=== PATIENT | male | born 1945 | race Caucasian/White ===

== ENCOUNTER 2021-02-17 01:02 | Inpatient (IN) | payer MEDICARE, BC ==
[~2021-02-17] VITALS: Ht 177.8 cm; Wt 90.7 kg
--- NOTE | 2021-02-17 01:15 | NUR ---
Pt transported bib private ambulance from [facility]. Here for medical clearance for admission to [facility]. Patient is on 5150 hold for attempting suicide, he has a laceration on left wrist that required 3 stitches, treated at [facility]. Safety precautions in place. Belongings removed from pts. posession. Pt. is being monitored 1:1. Pt. is cooperative.
[2021-02-17] MEDS ORDERED: SUVO20TA PO (01:37)
[2021-02-17] MEDS ORDERED: METO25TA6 PO (01:37)
[2021-02-17] MEDS ORDERED: ROSU20TA2 PO (01:37)
[2021-02-17] MEDS ORDERED: PYRI50CA PO (01:37)
[2021-02-17] MEDS ORDERED: AMIO200T5 PO (01:37)
[2021-02-17] MEDS ORDERED: HYDR25TA4 PO (01:37)
[2021-02-17] MEDS ORDERED: TEST5GEL2 TP (01:37)
[2021-02-17] MEDS ORDERED: ASPI81TA31 PO (01:37)
[2021-02-17] MEDS ORDERED: PREG150C PO (01:37)
[2021-02-17] MEDS ORDERED: LACT10SO3 PO (01:37)
[2021-02-17] MEDS ORDERED: INUL2TAB5 PO (01:37)
[2021-02-17] MEDS ORDERED: ERGO500040 PO (01:37)
[2021-02-17] MEDS ORDERED: METH5TAB2 PO (01:37)
[2021-02-17] MEDS ORDERED: DOCU100C36 PO (01:37)
[2021-02-17] MEDS ORDERED: SENN-291 PO (01:37)
[2021-02-17] MEDS ORDERED: THIO300C PO (01:37)
[2021-02-17] MEDS ORDERED: POTA10CA43 PO (01:37)
[2021-02-17] MEDS ORDERED: PANT40TA49 PO (01:37)
[2021-02-17] MEDS ORDERED: ZALE10CA PO (01:37)
[2021-02-17] MEDS ORDERED: ASCO-375 PO (01:37)
[2021-02-17] MEDS ORDERED: RIVA20TA PO (01:37)
[2021-02-17] MEDS ORDERED: SELE200T26 PO (01:37)
[2021-02-17] MEDS ORDERED: FLUT16SP16 NS (01:37)
[2021-02-17] MEDS ORDERED: BLOOD SUGAR DIAGNOSTIC 1 EACH STRIP VI ONE (02:15)
[2021-02-17] MEDS ORDERED: LORAZEPAM 0.5 MG TABLET PO PRN (02:15)
[2021-02-17] MEDS ORDERED: ACETAMINOPHEN 325 MG TABLET PO PRN (02:15)
[2021-02-17] MEDS ORDERED: MAG HYDROX/AL HYDROX/SIMETH 30 ML LIQUID UDC PO PRN (02:15)
[2021-02-17] MEDS ORDERED: ZOLPIDEM 5 MG TABLET PO PRN (02:15)
--- NOTE | 2021-02-17 02:30 | NUR ---
GPS ADMISSION : Patient is a 75 year old male brought into [facility] from [facility] ,on a 5150 for DTS. Per the hold, the police were called to the home because this patient tried to kill himself by cutting his wrist. The laceration is to the left wrist only but the cut was down to the tendon. This was cleaned and sutured prior to his arrival to the unit. Upon face to face evaluation, the patient appears to have complaints of multiple medical issues. The patient verbalized a long list of medical problems that have been getting "Worse over time ." Patient stated that " I have not been able to walk well and keep falling down. I stopped driving last August, and I feel like the best thing for me is to end it". This patient denied having suicide attempts in the past and has not been taking any medications for depression. The patient admitted to drinking everyday and minimized this as a problem. Pier Hand Helper noted the patient to be weak and unable to ambulate without assistance. A physical therapy evaluation was ordered. V.S. are stable. The patient was provided a Patient rights handbook along with the Advisement. Pier Hand Helper will continue to monitor the patient closely for falls, Safety Stratiges are in place and frequent rounding done. The patients laceration was photographed and the dressing was changed. No acute distress or issues at this time.
[2021-02-17 02:40] VITALS: BP 114/86
[2021-02-17 07:30] VITALS: BP 133/91
--- NOTE | 2021-02-17 11:09 | NUR ---
PT STATES HE WANTS A DNR TO BE PLACED IN HIS CHART. JONI COMPLETED AND EVALUATED BY DR. LIGHT. Addendum: 02/17/21 at 1118 by GIGI JARRETT RN PT STATED HE DID NOT "FEEL" LIKE SIGNING POLST AT THIS TIME BUT WANTS TO BE A DNR.
--- NOTE | 2021-02-17 14:01 | NUR ---
patient is alert and oriented x4 ambulating with FWW , left wrist wound care done . patient feels hopeless and helpless but denies any suicidal ideation, he said i got a lot medical problem that why i di that to my wrist.denies any pain or discomfort.encourage to verbalize feeling and attendance group activity, will continue close monitoring.
[2021-02-17 15:24] VITALS: BP 143/70
[2021-02-17] MEDS: DOCUSATE SODIUM 100 MG CAPSULE PO SCH (16:34)
[2021-02-17] MEDS: PANTOPRAZOLE SODIUM 40 MG TABLET.DR PO SCH (16:34)
[2021-02-17] MEDS: GABAPENTIN 100 MG CAPSULE PO SCH (16:34)
[2021-02-17] MEDS ORDERED: FLUTICASONE PROP NASAL SPRAY 16 GM BOTTLE NS PRN (17:00)
[2021-02-17 20:01] VITALS: BP 154/83
[2021-02-17] MEDS: ATORVASTATIN 40 MG TABLET PO SCH (20:31)
[2021-02-17] MEDS: METOPROLOL TARTRATE 25 MG TABLET PO SCH (20:32)
[2021-02-17] MEDS: SENNOSIDES/DOCUSATE SODIUM TABLET PO SCH (20:37)
[2021-02-17] MEDS: METHADONE HCL 10 MG TABLET PO SCH (22:20)
[2021-02-17] MEDS: ZOLPIDEM 5 MG TABLET PO PRN (22:27)
[2021-02-18] MEDS: LORAZEPAM 1 MG TABLET PO PRN (06:13)
[2021-02-18] MEDS: METHADONE HCL 10 MG TABLET PO SCH ×3 (06:13→21:06)
[2021-02-18 07:30] VITALS: BP 128/71
[2021-02-18] MEDS: GABAPENTIN 100 MG CAPSULE PO SCH ×3 (08:14→16:30)
[2021-02-18] MEDS: ASPIRIN 81 MG TAB.CHEW PO SCH (08:14)
[2021-02-18] MEDS: DOCUSATE SODIUM 100 MG CAPSULE PO SCH ×2 (08:14→16:30)
[2021-02-18] MEDS: DULOXETINE 30 MG CAPSULE.DR PO SCH (08:14)
[2021-02-18] MEDS: PANTOPRAZOLE SODIUM 40 MG TABLET.DR PO SCH ×2 (08:14→16:30)
[2021-02-18] MEDS: METOPROLOL TARTRATE 25 MG TABLET PO SCH ×2 (08:14→20:16)
[2021-02-18] MEDS: LACTULOSE 20 G/30 ML LIQUID UDC PO SCH (08:14)
[2021-02-18] MEDS ORDERED: AMIODARONE HCL 200 MG TABLET PO SCH (09:00)
[2021-02-18] MEDS ORDERED: SELENOMETHIONINE 200 MCG PO SCH (09:00)
[2021-02-18] MEDS ORDERED: Medication Not On Formulary EA (Rosuvastatin Calcium (Crestor) 1 TAB) PO SCH (09:00)
--- NOTE | 2021-02-18 10:40 | NUR ---
Firearms Report: Highballer completed and submitted a [employer] firearms report for 5150 danger to self certifications. A copy of report has been placed in patient chart.
--- NOTE | 2021-02-18 10:54 | NUR ---
GAGANDEEP Family Contact: SW spoke with patient's , Katie ([phone]) and discussed treatment and discharge plan.
--- NOTE | 2021-02-18 10:54 | NUR ---
GAGANDEEP Initial Discharge Plan: Pt resides at home [address] [place] [id number] live with , Katie ([phone]). Pt will return home upon discharge. AGGANDEEP will continue to work with patient, family, and MD to ensure a safe and proper discharge plan.
[2021-02-18 12:19] LABS: HEMATOCRIT 29.2 % (36.7-47.1); MEAN CORPUSCULAR HEMOGLOBIN 32.7 uug (23.8-33.4); MEAN CORPUSCULAR VOLUME 96.4 fL (73.0-96.2); PLATELET COUNT (AUTO) 212 K/uL (152-348)
[2021-02-18 12:27] LABS: ETHANOL < 3 MG/DL (0-0)
[2021-02-18 12:28] LABS: CARBON DIOXIDE 28 mmol/L (21-32); CHLORIDE 105 mmol/L (98-107); CREATININE 0.8 mg/dL (0.6-1.3); GLUCOSE 86 mg/dL (74-106); POTASSIUM 4.3 mmol/L (3.5-5.1); UREA NITROGEN, BLOOD 21 mg/dL (7-18)
[2021-02-18 12:41] LABS: ALANINE AMINOTRANSFERASE 35 U/L (16-63); ALKALINE PHOSPHATASE 57 U/L (50-136); ASPARTATE AMINOTRANSFERASE 19 U/L (15-37); BILIRUBIN,DIRECT 0.3 mg/dL (0.0-0.2); BILIRUBIN,TOTAL 1.7 mg/dL (0.2-1.0); TOTAL PROTEIN, SERUM 6.3 g/dL (6.4-8.2)
[2021-02-18 12:43] LABS: ACETAMINOPHEN < 2.0 ug/mL (10-30)
[2021-02-18 15:02] VITALS: BP 92/53
[2021-02-18 17:45] LABS: *BILIRUBIN,URIN NEGATIVE (NEGATIVE); *BLOOD, URINE NEGATIVE (NEGATIVE); *COLOR,URINE YELLOW (YELLOW); *KETONES,URINE TRACE (NEGATIVE); *UROBILINOGEN,URINE 0.2 E.U./dl (NORMAL); LEUKOCYTE ESTERASE ,URINE NEGATIVE (NEGATIVE); NITRITE, URINE NEGATIVE (NEGATIVE); PH,URINE 5.5 (5.0-8.0); UGLUCOSE NEGATIVE (NEGATIVE)
[2021-02-18 17:53] LABS: *CLARITY,URINE SLIGHTLY HAZY (CLEAR); BACTERIA,URINE FEW /HPF (NONE SEEN); CALCIUM OXALATE CRYSTALS,UR FEW /HPF (NONE SEEN); MUCUS,URINE FEW /LPF (0-FEW); RBC,URINE 0-3 /HPF (0-3); SQUAMOUS EPITHELIAL CELL,UR FEW /HPF (NONE SEEN)
[2021-02-18 17:57] LABS: *AMPHETAMINE, URINE NEGATIVE (NEGATIVE); *CANNABINOID, URINE NEGATIVE (NEGATIVE); *COCCAINE, URINE NEGATIVE (NEGATIVE); *OPIATE, URINE NEGATIVE (NEGATIVE); *PHENCYCLIDINE SCREEN,URINE NEGATIVE (NEGATIVE)
--- NOTE | 2021-02-18 18:00 | NUR ---
patient compliant with all medication,UA sent to Lab,will endorse to next shift on coming nurse to follow up for result.
[2021-02-18 20:00] VITALS: BP 135/58
[2021-02-18] MEDS: ATORVASTATIN 40 MG TABLET PO SCH (21:02)
[2021-02-18] MEDS: SENNOSIDES/DOCUSATE SODIUM TABLET PO SCH (21:03)
[2021-02-19] MEDS: LORAZEPAM 1 MG TABLET PO PRN (02:18)
[2021-02-19] MEDS: METHADONE HCL 10 MG TABLET PO SCH ×3 (06:08→21:23)
[2021-02-19] MEDS: PANTOPRAZOLE SODIUM 40 MG TABLET.DR PO SCH ×2 (06:24→16:21)
[2021-02-19 07:30] VITALS: BP 145/78
[2021-02-19] MEDS: DULOXETINE 30 MG CAPSULE.DR PO SCH (08:12)
[2021-02-19] MEDS: ASPIRIN 81 MG TAB.CHEW PO SCH (08:12)
[2021-02-19] MEDS: METOPROLOL TARTRATE 25 MG TABLET PO SCH ×2 (08:12→20:19)
[2021-02-19] MEDS: GABAPENTIN 100 MG CAPSULE PO SCH ×3 (08:12→16:21)
[2021-02-19] MEDS: DOCUSATE SODIUM 100 MG CAPSULE PO SCH ×2 (08:13→16:21)
[2021-02-19] MEDS: LACTULOSE 20 G/30 ML LIQUID UDC PO SCH (08:13)
--- NOTE | 2021-02-19 11:00 | NUR ---
GAGANDEEP Family Contact: SW spoke with patient's , Katie ([phone]) and discussed updated treatment and discharge plan.
--- NOTE | 2021-02-19 11:52 | NUR ---
WOUND CARE CONSULT: PT PRESENTS WITH LEFT WRIST SUTURED LACERATION AND RT ARM CLOSED, HEALING SKIN TEAR, PRESENT ON ADMISSION. RECOMMENDATIONS MADE FOR WOUND CARE AND SKIN PROTECTION. DISCUSSED WITH NURSING STAFF. MD IN AGREEMENT WITH PLAN OF CARE.
--- NOTE | 2021-02-19 12:07 | NUR ---
Patient seen and examined by wound nurse with order for left wrist with sutures and right arm skin tear. Cleanse the site with NS and covered with bordered gauze. no redness noted. will continue monitor
[2021-02-19 15:14] VITALS: BP 112/56
[2021-02-19] MEDS: MAGNESIUM HYDROXIDE 30 ML LIQUID UDC PO PRN (16:21)
[2021-02-19 20:05] VITALS: BP 117/66
[2021-02-19] MEDS: SENNOSIDES/DOCUSATE SODIUM TABLET PO SCH (20:18)
[2021-02-19] MEDS: TRAZODONE 50 MG TABLET PO SCH (20:19)
[2021-02-19] MEDS: ATORVASTATIN 40 MG TABLET PO SCH (20:19)
[2021-02-19] MEDS: ZOLPIDEM 5 MG TABLET PO PRN (21:55)
[2021-02-20] MEDS: PANTOPRAZOLE SODIUM 40 MG TABLET.DR PO SCH ×2 (06:18→16:47)
[2021-02-20] MEDS: METHADONE HCL 10 MG TABLET PO SCH ×3 (06:18→21:11)
[2021-02-20 07:30] VITALS: BP 133/58
[2021-02-20] MEDS: DOCUSATE SODIUM 100 MG CAPSULE PO SCH ×2 (08:45→16:45)
[2021-02-20] MEDS: DULOXETINE 30 MG CAPSULE.DR PO SCH (08:45)
[2021-02-20] MEDS: ASPIRIN 81 MG TAB.CHEW PO SCH (08:45)
[2021-02-20] MEDS: GABAPENTIN 100 MG CAPSULE PO SCH ×3 (08:45→16:45)
[2021-02-20] MEDS: LACTULOSE 20 G/30 ML LIQUID UDC PO SCH (08:46)
[2021-02-20] MEDS: METOPROLOL TARTRATE 25 MG TABLET PO SCH ×2 (08:46→20:36)
[2021-02-20] MEDS ORDERED: BISACODYL 10 MG SUPP.RECT RC ONE (12:30)
--- NOTE | 2021-02-20 14:00 | NUR ---
AMBULATORY WITH THE FRONT WHEEL WALKER WITH SLOW STEADY GAIT REMAIN ON PAIN MANAGEMENT ORDERED AND HELPFUL COMPLIANT WITH MEDICATIONS AND CARE WILL CONTINUE TO PROVIDE SAFE AND THERAPEUTIC ENVIRONMENT AT ALL TIMES
[2021-02-20 16:00] VITALS: BP 109/61
--- NOTE | 2021-02-20 18:00 | NUR ---
PATIENT STATED THAT HE HAS NOT HAD A BOWEL MOVEMENT SO DULCOLAX SUPPOSITORY WAS GIVEN ORDERED AWAITING FOR RESULTS.
[2021-02-20 20:12] VITALS: BP 150/74
--- NOTE | 2021-02-20 20:30 | NUR ---
PATIENT STATED HAD GOOD RESULTS FROM THE SUPPOSITORY HAD A LARGE BOWEL MOVEMENT.
[2021-02-20] MEDS: ATORVASTATIN 40 MG TABLET PO SCH (20:35)
[2021-02-20] MEDS: TRAZODONE 50 MG TABLET PO SCH (20:35)
[2021-02-20] MEDS: SENNOSIDES/DOCUSATE SODIUM TABLET PO SCH (20:41)
[2021-02-21] MEDS: LORAZEPAM 1 MG TABLET PO PRN (04:17)
--- NOTE | 2021-02-21 04:17 | NUR ---
PATIENT IS SEEN WALKING IN THE HALLWAY WITH NO SHIRT STATED LOOKING FOR SOMETHING TO WEAR GAVE HIM A NITE GOWN BUT HE IS VERY DISORIENTED AND WANDERING WHY HE SHOULD WEAR A GOWN ANXIOUS AND SOMEWHAT RESTLESS ASSISTED HIM INTO BED AND MEDICATED HIM WITH ATIVAN ORDERED PATIENT ENCOURAGED TO RELAX AND SLEEP A LITTLE BIT MORE.WILL CONTINUE TO OBSERVE.
[2021-02-21] MEDS: METHADONE HCL 10 MG TABLET PO SCH ×3 (06:09→21:15)
[2021-02-21] MEDS: PANTOPRAZOLE SODIUM 40 MG TABLET.DR PO SCH ×2 (06:30→16:36)
--- NOTE | 2021-02-21 06:39 | NUR ---
DUE MEDICATIONS GIVEN AWAKE ALERT BUT FORGETFUL SLEPT FAIR DENIES DISCOMFORTS WILL CONTINUE TO OBSERVE AND PROVIDE SAFE AND THERAPEUTIC ENVIRONMENT AT ALL TIMES.
[2021-02-21] MEDS: ASPIRIN 81 MG TAB.CHEW PO SCH (08:20)
[2021-02-21] MEDS: LACTULOSE 20 G/30 ML LIQUID UDC PO SCH (08:20)
[2021-02-21] MEDS: METOPROLOL TARTRATE 25 MG TABLET PO SCH ×2 (08:21→20:28)
[2021-02-21] MEDS: DOCUSATE SODIUM 100 MG CAPSULE PO SCH ×2 (08:21→16:36)
[2021-02-21] MEDS: DULOXETINE 30 MG CAPSULE.DR PO SCH (08:21)
[2021-02-21] MEDS: GABAPENTIN 100 MG CAPSULE PO SCH ×3 (08:21→16:36)
[2021-02-21 08:30] VITALS: BP 128/69
--- NOTE | 2021-02-21 09:52 | NUR ---
Court Hearing: Patient's court hearing for 5250 was today and it was upheld for danger to self and GD.
--- NOTE | 2021-02-21 13:19 | NUR ---
Transportation Agreement: This SW spoke with Briseida ([phone]) who stated pt's transportation is with Bus. This SW informed pt is fall risk and uses a walker. Briseida stated she will try to figure out a different transportation.
--- NOTE | 2021-02-21 15:17 | NUR ---
Transportation Deck Worker: This SW spoke with Briseida ([phone]) from [facility] who scheduled transportation for 02/27/21Thursday between 10AM-2PM pickup driver through [employer] ([phone]) and this SW confirmed with Marlene.
[2021-02-21 16:26] VITALS: BP 126/70
[2021-02-21 20:00] VITALS: BP 116/68
[2021-02-21] MEDS: SENNOSIDES/DOCUSATE SODIUM TABLET PO SCH (20:27)
[2021-02-21] MEDS: ATORVASTATIN 40 MG TABLET PO SCH (20:27)
[2021-02-21] MEDS: TRAZODONE 50 MG TABLET PO SCH (20:28)
[2021-02-22] MEDS: METHADONE HCL 10 MG TABLET PO SCH ×3 (05:58→21:36)
--- NOTE | 2021-02-22 06:09 | NUR ---
GPS: REMAIN PARANOID. AM MEDICATIONS GIVEN ,LYING IN BED AWAKE, ALERT BUT FORGETFUL SLEPT 6.15 HRS THROUGH THE NIGHT. DENIES SI T THIS TIME. CONTINUE TO OBSERVE AND PROVIDE SAFE AND THERAPEUTIC ENVIRONMENT AT ALL TIMES.
[2021-02-22] MEDS: PANTOPRAZOLE SODIUM 40 MG TABLET.DR PO SCH ×2 (06:44→16:23)
[2021-02-22 07:30] VITALS: BP 141/75
[2021-02-22] MEDS: LACTULOSE 20 G/30 ML LIQUID UDC PO SCH (08:26)
[2021-02-22] MEDS: DOCUSATE SODIUM 100 MG CAPSULE PO SCH ×2 (08:26→16:23)
[2021-02-22] MEDS: ASPIRIN 81 MG TAB.CHEW PO SCH (08:26)
[2021-02-22] MEDS: GABAPENTIN 100 MG CAPSULE PO SCH ×3 (08:27→16:23)
[2021-02-22] MEDS: METOPROLOL TARTRATE 25 MG TABLET PO SCH ×2 (08:27→20:20)
[2021-02-22] MEDS: DULOXETINE 30 MG CAPSULE.DR PO SCH (08:27)
--- NOTE | 2021-02-22 12:02 | NUR ---
GAGANDEEP Individual Therapy: sawmill relief worker met with patient for brief counseling to help address patients presenting problem SI. Patient currently denies SI. Patient constantly complaining that he is "bored". This SW encouraged pt to participate in group and to interact, however, pt was not understanding and refused. SW unable to conduct therapy at this time due to pt not being cooperative.
--- NOTE | 2021-02-22 13:46 | NUR ---
Gps/Batch Tester- Mica, pt's called 3 x today, requestint to change his diet to regular food" or else he will stopped eating which happened before per wide, claimed he does not have any restrictions at home. Reassured will notify Medical Doctor and have his diet change. Ambulates around with his front wheel walker . Bilateral forearm lacerations with sutures intact, site cleansed with NS covered with border\\ dressings 2x2
[2021-02-22 16:00] VITALS: BP 152/77
[2021-02-22 20:02] VITALS: BP 158/67
[2021-02-22] MEDS: ATORVASTATIN 40 MG TABLET PO SCH (20:19)
[2021-02-22] MEDS: TRAZODONE 50 MG TABLET PO SCH (20:20)
[2021-02-22] MEDS: SENNOSIDES/DOCUSATE SODIUM TABLET PO SCH (20:22)
[2021-02-23] MEDS: METHADONE HCL 10 MG TABLET PO SCH ×3 (05:38→22:52)
--- NOTE | 2021-02-23 05:45 | NUR ---
GPS: REMAIN PARANOID. COMPLIANT WITH AM MEDICATIONS,LYING IN BED AWAKE, ALERT BUT FORGETFUL SLEPT 3.45 HRS THROUGH THE NIGHT. DENIES SI T THIS TIME. CONTINUE TO OBSERVE AND PROVIDE SAFE AND THERAPEUTIC ENVIRONMENT AT ALL TIMES.
[2021-02-23] MEDS: PANTOPRAZOLE SODIUM 40 MG TABLET.DR PO SCH ×2 (06:09→16:10)
[2021-02-23 07:55] VITALS: BP 146/74
[2021-02-23] MEDS: ASPIRIN 81 MG TAB.CHEW PO SCH (08:14)
[2021-02-23] MEDS: DULOXETINE 30 MG CAPSULE.DR PO SCH (08:14)
[2021-02-23] MEDS: GABAPENTIN 100 MG CAPSULE PO SCH ×3 (08:15→16:10)
[2021-02-23] MEDS: DOCUSATE SODIUM 100 MG CAPSULE PO SCH ×2 (08:15→16:10)
[2021-02-23] MEDS: METOPROLOL TARTRATE 25 MG TABLET PO SCH ×2 (08:15→21:45)
[2021-02-23] MEDS: LACTULOSE 20 G/30 ML LIQUID UDC PO SCH (08:15)
--- NOTE | 2021-02-23 15:01 | NUR ---
Gps/Earth Burner- Attended his group therapy, interacting with selected peers. Lower back pain, per pt. chroni. Ambulates around with FWW. Had been in and out of the activity room stayed in the dinning room during his lunch eating better.
[2021-02-23 15:55] VITALS: BP 121/68
[2021-02-23 19:54] VITALS: BP 148/74
[2021-02-23] MEDS: ATORVASTATIN 40 MG TABLET PO SCH (21:38)
[2021-02-23] MEDS: TRAZODONE 50 MG TABLET PO SCH (21:38)
[2021-02-23] MEDS: SENNOSIDES/DOCUSATE SODIUM TABLET PO SCH (21:38)
[2021-02-24] MEDS: LORAZEPAM 1 MG TABLET PO PRN ×2 (04:16→20:41)
[2021-02-24] MEDS: METHADONE HCL 10 MG TABLET PO SCH ×3 (06:30→21:08)
[2021-02-24] MEDS: PANTOPRAZOLE SODIUM 40 MG TABLET.DR PO SCH ×2 (06:31→16:32)
[2021-02-24 07:57] VITALS: BP 151/86
[2021-02-24] MEDS: DULOXETINE 30 MG CAPSULE.DR PO SCH (08:13)
[2021-02-24] MEDS: GABAPENTIN 100 MG CAPSULE PO SCH ×3 (08:13→16:32)
[2021-02-24] MEDS: LACTULOSE 20 G/30 ML LIQUID UDC PO SCH (08:14)
[2021-02-24] MEDS: ASPIRIN 81 MG TAB.CHEW PO SCH (08:14)
[2021-02-24] MEDS: METOPROLOL TARTRATE 25 MG TABLET PO SCH ×2 (08:14→20:41)
[2021-02-24] MEDS: DOCUSATE SODIUM 100 MG CAPSULE PO SCH ×2 (08:23→16:32)
--- NOTE | 2021-02-24 09:22 | NUR ---
Stayed in bed most of the morning, noted was able to eat half of his breakfast. Pompted to take her routine am, meds. reviewed with patient, also reviewed with patient his dietary needs and restrictics.Lower extremity edema trace , encouraged to elevate lower ext when in bed. Requesting to be moved to onother floor per pt. he does not belong here. . Numbness to lower ext. per patient, compliant with am meds, except stool softener he refused. Bilateral forearm lacerations with sutures intact, 2x2 border dressing intact
--- NOTE | 2021-02-24 10:06 | NUR ---
Gps/Relay Shop Supervisor- Patient's called, requesting a Neurologist to see patient, Also requesting to talk to Medical Doctor as soon as possible claimed she wants her out of this Hosp. ([phone] ([facility]), Call # [phone]. Per patient had been complaining she does not feel well, v/s signs stable, adequate 02 sat. patient appeared to be anxious, offered ativan, pt. refused, will continue to monitor patient complaints.
--- NOTE | 2021-02-24 12:40 | NUR ---
Gps/Chronic Disease Epidemiologist- Patient's Primary Physician from [place] called, wants to speak to pt's Medical Doctor from here, informed will givw him message, (Dr Cuadra) [phone] (cell #) Office .
[2021-02-24] MEDS: MAGNESIUM HYDROXIDE 30 ML LIQUID UDC PO PRN (14:31)
[2021-02-24 16:01] VITALS: BP 149/73
--- NOTE | 2021-02-24 16:41 | NUR ---
Gps/Contract Graphic Designer- Stayed in the activity room watching TV, interacting with his selected peers. Worried about his bowels, constipation per patient, MOM 30 ml was given, adequate fluid intake. Ambulates around with front wheel walker.
[2021-02-24 20:00] VITALS: BP 137/70
[2021-02-24] MEDS: ATORVASTATIN 40 MG TABLET PO SCH (20:40)
[2021-02-24] MEDS: TRAZODONE 50 MG TABLET PO SCH (20:40)
[2021-02-24] MEDS: SENNOSIDES/DOCUSATE SODIUM TABLET PO SCH (20:40)
[2021-02-25] MEDS: METHADONE HCL 10 MG TABLET PO SCH ×3 (06:11→22:00)
[2021-02-25] MEDS: PANTOPRAZOLE SODIUM 40 MG TABLET.DR PO SCH ×2 (06:11→16:41)
--- NOTE | 2021-02-25 06:34 | NUR ---
Patient ambulated around the unit last evening using a FWW . No complaints at that time. Snack provided, patient was medication compliant and slept 7.00.
[2021-02-25 07:30] VITALS: BP 158/83
[2021-02-25] MEDS: ASPIRIN 81 MG TAB.CHEW PO SCH (08:42)
[2021-02-25] MEDS: DULOXETINE 30 MG CAPSULE.DR PO SCH (08:42)
[2021-02-25] MEDS: DOCUSATE SODIUM 100 MG CAPSULE PO SCH ×2 (08:43→16:41)
[2021-02-25] MEDS: GABAPENTIN 100 MG CAPSULE PO SCH ×3 (08:43→16:41)
[2021-02-25] MEDS: LACTULOSE 20 G/30 ML LIQUID UDC PO SCH (08:43)
[2021-02-25] MEDS: METOPROLOL TARTRATE 25 MG TABLET PO SCH ×2 (08:44→21:00)
[2021-02-25] MEDS ORDERED: HYDROXYZINE PAMOATE 25 MG CAPSULE PO PRN (13:15)
[2021-02-25] MEDS ORDERED: TRAZODONE 100 MG TABLET PO SCH (13:30)
[2021-02-25 15:05] VITALS: BP 106/44
[2021-02-25 20:05] VITALS: BP 116/64
[2021-02-25] MEDS: SENNOSIDES/DOCUSATE SODIUM TABLET PO SCH (21:00)
[2021-02-25] MEDS: ATORVASTATIN 40 MG TABLET PO SCH (21:00)
[2021-02-25] MEDS: TRAZODONE 100 MG TABLET PO SCH (21:00)
[2021-02-25] MEDS ORDERED: TRAZODONE 50 MG TABLET PO SCH (21:00)
[2021-02-26] MEDS: METHADONE HCL 10 MG TABLET PO SCH ×3 (06:00→23:07)
--- NOTE | 2021-02-26 06:29 | NUR ---
Pt refused all scheduled medications this shift. Education provided regarding risks and benefits. Non compliant and uncooperative. Denied pain, VS stable.
[2021-02-26] MEDS: PANTOPRAZOLE SODIUM 40 MG TABLET.DR PO SCH ×2 (06:31→17:03)
[2021-02-26 07:30] VITALS: BP 181/93
[2021-02-26] MEDS: LACTULOSE 20 G/30 ML LIQUID UDC PO SCH (08:22)
[2021-02-26] MEDS: ASPIRIN 81 MG TAB.CHEW PO SCH (08:22)
[2021-02-26] MEDS: DOCUSATE SODIUM 100 MG CAPSULE PO SCH ×2 (08:22→17:03)
[2021-02-26] MEDS: DULOXETINE 30 MG CAPSULE.DR PO SCH (08:22)
[2021-02-26] MEDS: GABAPENTIN 100 MG CAPSULE PO SCH ×3 (08:23→17:03)
[2021-02-26] MEDS: METOPROLOL TARTRATE 25 MG TABLET PO SCH ×2 (08:23→20:03)
[2021-02-26 15:04] VITALS: BP 129/66
[2021-02-26] MEDS: ATORVASTATIN 40 MG TABLET PO SCH (20:03)
[2021-02-26] MEDS: SENNOSIDES/DOCUSATE SODIUM TABLET PO SCH (20:03)
[2021-02-26 20:04] VITALS: BP 157/81
[2021-02-26] MEDS: TRAZODONE 100 MG TABLET PO SCH (20:04)
[2021-02-27] MEDS: METHADONE HCL 10 MG TABLET PO SCH (06:11)
[2021-02-27] MEDS: PANTOPRAZOLE SODIUM 40 MG TABLET.DR PO SCH (06:31)
[2021-02-27 07:30] VITALS: BP 159/90
--- NOTE | 2021-02-27 07:30 | NUR ---
NURSE REPORT Report given by night nurse Saad and this nurse assume care of patient. Received patient awake and alert. Ambulatory. VSS. Afeb. No c/o pain or discomfort.
--- NOTE | 2021-02-27 07:44 | NUR ---
SW Discharge Note: Patient will be discharged home [address] [place] [address] ([phone]). This SW spoke with Briseida ([phone]) from [facility] who scheduled transportation via [employer] ([phone]) order picker/assembler between 11AM. Patients , Katie ([phone]) is aware and agreeable with discharge plan. Patient is alert and oriented x4 and is aware and agreeable with discharge plan. Patient denies suicidal or homicidal ideation. Patient presents with appropriate mood and congruent affect. Patient will be following up with his primary physician Dr. Nikolai Theodore [address] [place] [address] [address], [place] [address] (P [phone] F [phone]) and has a follow up appointment scheduled on March 04, 2021 at 2PM. SW spoke with Lashon who confirmed Doctor will monitor patients psychotropic medications and will refer patient to a psychiatrist. Patient was provided with the following resources: [facility] ([phone]), [facility] ([phone]), [facility] ([phone]), National Suicide Prevention Lifeline (907-056-5099).
[2021-02-27] MEDS: DULOXETINE 30 MG CAPSULE.DR PO SCH (08:46)
[2021-02-27] MEDS: ASPIRIN 81 MG TAB.CHEW PO SCH (08:46)
[2021-02-27] MEDS: METOPROLOL TARTRATE 25 MG TABLET PO SCH (08:47)
[2021-02-27] MEDS: LACTULOSE 20 G/30 ML LIQUID UDC PO SCH ×3 (08:47→08:54)
[2021-02-27] MEDS: GABAPENTIN 100 MG CAPSULE PO SCH (08:47)
[2021-02-27] MEDS: DOCUSATE SODIUM 100 MG CAPSULE PO SCH ×3 (08:48→09:00)
[2021-02-27 09:45] VITALS: BP 134/90
--- NOTE | 2021-02-27 12:15 | NUR ---
DISCHARGE NOTES D/C instructions given to patient by charge nurse. Patient verbalized understandings of instructions. Pictures taken by this nurse of left forearm and right back arm. D/C via wheelchair to front of hospital by this nurse and tow truck driver taking 2 patients in the [place] area.
--- NOTE | 2021-02-27 13:09 | NUR ---
Pt is being discharged home. Transportation, [employer] is here to pick him up. Pt is awake and willing to go. Pt's is aware and expecting the patient. VS are stable, no distress. Stitches has been removed from patient's left wrist. Discharge instructions including a follow up appointment and instructions on prescription medications given to the patient. Pt verbalizes understanding.
== END 2021-02-27 13:12 | disposition home or self-care (01) | DRG 881 ==
LOC: ER 01:13 → GPS 01:59
PROVIDERS: ADMIT Psychiatry & Neurology Psychiatry; ATTEND Hospitalist
DX: F32.9 Major depressive disorder, single episode, unspecified (principal); I11.0 Hypertensive heart disease with heart failure; I50.32 Chronic diastolic (congestive) heart failure; R45.851 Suicidal ideations; F23 Brief psychotic disorder; F43.21 Adjustment disorder with depressed mood; S61.512D Laceration without foreign body of left wrist, subsequent encounter; X78.8XXD Intentional self-harm by other sharp object, subsequent encounter; G62.9 Polyneuropathy, unspecified; E78.5 Hyperlipidemia, unspecified; I48.0 Paroxysmal atrial fibrillation; I25.10 Atherosclerotic heart disease of native coronary artery without angina pectoris; K59.00 Constipation, unspecified; Z79.82 Long term (current) use of aspirin; Z87.11 Personal history of peptic ulcer disease; Z98.1 Arthrodesis status; Z79.01 Long term (current) use of anticoagulants; Z80.3 Family history of malignant neoplasm of breast; Z85.820 Personal history of malignant melanoma of skin; Z87.442 Personal history of urinary calculi; Z91.5 Personal history of self-harm; F29 Unspecified psychosis not due to a substance or known physiological condition; G89.4 Chronic pain syndrome; I87.2 Venous insufficiency (chronic) (peripheral)
CPT/HCPCS: 36415; 71045; 85025; 87086; 93005; 93307; A4663; G0480; J3535